=== PATIENT | male | born 1975 | race Two or more races ===

== ENCOUNTER 2022-05-05 14:21 | Emergency (ER) | payer MEDICAID ==
[~2022-05-05] VITALS: Ht 170.2 cm; Wt 79.8 kg
[2022-05-05] MEDS: IV NS 0.9% 1,000 ML BAG IV ONE (14:51)
--- NOTE | 2022-05-05 15:10 | NUR ---
RECEIVED PT 46 YRS MALE CAME FROM HOME BY JAME C/O Elevated bs awake confused respirtion spont and easy
[2022-05-05 15:23] LABS: BASOPHILS # (AUTO) 0.1 K/uL (0.0-0.2); BASOPHILS % (AUTO) 1.2 % (0.0-2.0); EOSINOPHILS % (AUTO) 0.5 % (0.0-6.0); HEMATOCRIT 48 % (39-51); HEMOGLOBIN 16.8 g/dL (13.5-17.5); LYMPHOCYTES # (AUTO) 0.9 K/uL (0.8-4.8); LYMPHOCYTES % (AUTO) 17.9 % (20.0-44.0); MEAN CORPUSCULAR HGB CONC 35 g/dl (31.0-36.0); MEAN CORPUSCULAR VOLUME 85 fL (80-96); MONOCYTES # (AUTO) 0.7 K/uL (0.1-1.30); MONOCYTES % (AUTO) 14.2 % (2.0-12.0); NEUTROPHILS # (AUTO) 3.2 K/uL (1.8-8.9); NEUTROPHILS % (AUTO) 66.2 % (43.0-81.0); PLATELET COUNT (AUTO) 187 K/uL (150-450); RED BLOOD CELL COUNT(AUTO) 5.71 MIL/uL (4.5-6.0); WHITE BLOOD COUNT (AUTO) 4.8 K/uL (4.3-11.0)
[2022-05-05 15:45] LABS: ALBUMIN 4.5 g/dL (3.4-5.0); BILIRUBIN,DIRECT 0.5 mg/dL (0.0-0.2); BILIRUBIN,TOTAL 0.9 mg/dL (0.2-1.0); CALCIUM, SERUM 8.7 mg/dL (8.5-10.1); CREATININE 1.6 mg/dL (0.6-1.3); TOTAL PROTEIN, SERUM 8.3 g/dL (6.4-8.2)
[2022-05-05 15:47] LABS: POTASSIUM 2.7 mmol/L (3.5-5.1)
--- NOTE | 2022-05-05 16:20 | NUR ---
URINE COLLECTED AND SENT TO LAB.
[2022-05-05 17:12] LABS: BILIRUBIN,URINE NEGATIVE (NEGATIVE); COLOR,URINE YELLOW (YELLOW); LEUKOCYTE ESTERASE ,URINE NEGATIVE (NEGATIVE); NITRITE, URINE NEGATIVE (NEGATIVE); PROTEIN,URINE TRACE mg/dl (NEGATIVE); UGLUCOSE 3+ mg/dL (NEGATIVE)
[2022-05-05] MEDS ORDERED: POTASSIUM CHLORIDE 20 MEQ TAB.PRT.SR PO ONE (17:12)
[2022-05-05] MEDS: POTASSIUM CHLORIDE 20 MEQ TAB.PRT.SR PO ONE (17:21)
[2022-05-05 17:38] LABS: WBC,URINE 0-2 /HPF (0-3)
[2022-05-05 17:39] LABS: BACTERIA,URINE None seen /HPF (None Seen); SQUAMOUS EPITHELIAL CELL,UR 0-2 /HPF (None Seen)
[2022-05-05] MEDS ORDERED: POTA20TA83 PO (17:56)
[2022-05-05 18:01] VITALS: BP 132/82
--- NOTE | 2022-05-05 18:05 | NUR ---
IV removed. Catheter intact and site benign. Pressure and 4x4 applied to site. No bleeding noted.Patient discharged to home in stable condition. Written and verbal after care instructions given. Patient verbalizes understanding of instruction.
== END 2022-05-05 18:06 | disposition home or self-care (01) ==
LOC: EDBD 14:44 → ER 14:44
DX: F10.129 Alcohol abuse with intoxication, unspecified (principal); E87.6 Hypokalemia; E11.65 Type 2 diabetes mellitus with hyperglycemia; I10 Essential (primary) hypertension; Y90.9 Presence of alcohol in blood, level not specified
CPT/HCPCS: 99285; 96360; 85025; 80048; 80076; 81001; 36415; 82962; J7030

== ENCOUNTER 2022-07-05 08:37 | Inpatient (IN) | payer MEDICAID ==
[~2022-07-05] VITALS: Ht 170.2 cm; Wt 83.5 kg
[~2022-07-05 08:37] MED LIST: POTA20TA83 PO
--- NOTE | 2022-07-05 08:45 | NUR ---
BIBA FOR NAUSEA/VOMITING. PATIENT HAS BEEN DRINKING ALCOHOL FREQUENTLY AT HOME PER REPORT AND NOT EATING. A/O X 3, ABLE TO MAKE NEEDS KNOWN, TOLERATING WELL ON ROOM AIR.
[2022-07-05] MEDS ORDERED: IV NS 0.9% 1,000 ML BAG IV ONE (09:00)
--- NOTE | 2022-07-05 09:00 | NUR ---
ACCUCHECK 369
--- NOTE | 2022-07-05 09:09 | NUR ---
BLOOD SAMPLES OBTAINED
[2022-07-05 09:20] LABS: BASOPHILS % (AUTO) 0.3 % (0.0-2.0); HEMATOCRIT 49 % (39-51); HEMOGLOBIN 16.4 g/dL (13.5-17.5); LYMPHOCYTES # (AUTO) 0.5 K/uL (0.8-4.8); LYMPHOCYTES % (AUTO) 3.5 % (20.0-44.0); MEAN CORPUSCULAR HGB CONC 33 g/dl (31.0-36.0); MEAN CORPUSCULAR VOLUME 90 fL (80-96); MONOCYTES # (AUTO) 0.5 K/uL (0.1-1.30); MONOCYTES % (AUTO) 3.1 % (2.0-12.0); NEUTROPHILS # (AUTO) 14.1 K/uL (1.8-8.9); NEUTROPHILS % (AUTO) 93.1 % (43.0-81.0); PLATELET COUNT (AUTO) 258 K/uL (150-450); WHITE BLOOD COUNT (AUTO) 15.2 K/uL (4.3-11.0)
[2022-07-05 09:36] LABS: ALANINE AMINOTRANSFERASE 31 U/L (12-78); ALBUMIN 4.4 g/dL (3.4-5.0); ALKALINE PHOSPHATASE 113 U/L (46-116); ASPARTATE AMINOTRANSFERASE 28 U/L (15-37); BILIRUBIN,DIRECT 0.4 mg/dL (0.0-0.2); CALCIUM, SERUM 9.3 mg/dL (8.5-10.1); CARBON DIOXIDE 22 mmol/L (21-32); CHLORIDE 94 mmol/L (98-107); CREATININE 2.1 mg/dL (0.6-1.3); LIPASE 12 U/L (73-393); POTASSIUM 4.1 mmol/L (3.5-5.1); SODIUM SERUM 135 mmol/L (136-145); TOTAL PROTEIN, SERUM 8.2 g/dL (6.4-8.2); UREA NITROGEN, BLOOD 12 mg/dL (7-18)
[2022-07-05 09:45] LABS: GLUCOSE 380 mg/dL (74-106)
--- NOTE | 2022-07-05 09:46 | NUR ---
ACCUCHECK 380
--- NOTE | 2022-07-05 10:29 | NUR ---
COVID SWAB OBTAINED
--- NOTE | 2022-07-05 10:33 | NUR ---
MOVE SHEET SUBMITTED.
--- NOTE | 2022-07-05 11:17 | NUR ---
URINE SAMPLE OBTAINED
[2022-07-05] MEDS ORDERED: METF-440 PO (11:21)
[2022-07-05] MEDS ORDERED: GLIP5TAB13 PO (11:21)
[2022-07-05] MEDS ORDERED: Z GUARD REMEDY 4 OZ OINT TP PRN (11:30)
[2022-07-05] MEDS ORDERED: ONDANSETRON HCL/PF 4 MG/2 ML VIAL IVP PRN (11:30)
[2022-07-05] MEDS ORDERED: MAGNESIUM HYDROXIDE 30 ML UDC PO PRN (11:30)
[2022-07-05] MEDS ORDERED: MAG HYDROX/AL HYDROX/SIMETH 30 ML UDC PO PRN (11:30)
[2022-07-05] MEDS ORDERED: ACETAMINOPHEN 325 MG TABLET PO PRN (11:30)
[2022-07-05] MEDS ORDERED: DEXTROSE 50%-WATER 50 ML DISP.SYRIN IV PRN (11:30)
[2022-07-05] MEDS: BLOOD SUGAR DIAGNOSTIC 1 EACH STRIP VI SCH ×3 (12:00→22:07)
[2022-07-05 12:07] LABS: BILIRUBIN,URINE NEGATIVE (NEGATIVE); COLOR,URINE YELLOW (YELLOW); LEUKOCYTE ESTERASE ,URINE NEGATIVE (NEGATIVE); NITRITE, URINE NEGATIVE (NEGATIVE); PH,URINE 5.5 (5.0-8.0); PROTEIN,URINE NEGATIVE (NEGATIVE); UGLUCOSE 3+ mg/dL (NEGATIVE); UROBILINOGEN,URINE 0.2 EU/dL (0.2)
[2022-07-05 12:13] LABS: BACTERIA,URINE Rare /HPF (None Seen); RBC,URINE 0-2 /HPF (0-2); SQUAMOUS EPITHELIAL CELL,UR Moderate /HPF (None Seen); WBC,URINE 0-2 /HPF (0-3)
--- NOTE | 2022-07-05 14:09 | NUR ---
GOT BED 304-1 ADMITTING INFORMED.
--- NOTE | 2022-07-05 14:33 | NUR ---
REPORT GIVEN TO ROSA CALLAWAY
--- NOTE | 2022-07-05 15:20 | NUR ---
PATIENT TRANSFERED TO 304-1, ALL CARE ENDORSED TO ROSA CALLAWAY
[2022-07-05] MEDS: IV NS 0.9% 1,000 ML IV SCH ×2 (15:42→20:28)
--- NOTE | 2022-07-05 16:14 | NUR ---
ADMISSION NOTES ADMITTED PATIENT FROM ED, A/O X-3 KHMER SPEAKING ONLY C/O ABDOMINAL PAIN/NAUSEA . ON ROOM AIR, TOLERATING WELL, BREATHING EVENLY AND UNLABORED. IV ACCESS ON LAC G. 20 G#20 WITH NS RUNNING AT 120 ML/HR PATENT, INTACT, AND FLUSHES WELL. PRN ZOFRAN ADMINISTERED C/O VOMITING. INITIAL ASSESSMENT DONE, DENIES SKIN ISSUES. REFUSED SKIN ASSESSMENT. ORIENTED TO ROOM AND STAFF. SAFETY MEASURES MAINTAINED. BED IN LOWEST POSITION, BRAKES LOCKED. SIDE RAILS UP X2. CALL LIGHT WITHIN REACH. WILL CONTINUE TO MONITOR.
[2022-07-05] MEDS: INSULIN REGULAR, HUMAN 100 UNIT/ML 3 ML VIAL SQ PRN (17:22)
--- NOTE | 2022-07-05 18:20 | NUR ---
MANAGER QUALITY CLOSING NOTE PATIENT AWAKE IN BED, A/O X-3 LAO SPEAKING ONLY. ON ROOM AIR, TOLERATING WELL, BREATHING EVENLY AND UNLABORED. IV ACCESS ON LAC G. 20 G#20 NS RUNNING AT 120 ML/HR PATENT, INTACT, AND FLUSHES WELL.SAFETY MEASURES MAINTAINED. BED IN LOWEST POSITION, BRAKES LOCKED. SIDE RAILS UP X2. CALL LIGHT WITHIN REACH. WILL ENDORSE TO THE REAMING PRESS OPERATOR NURSE FOR MICHAEL.
--- NOTE | 2022-07-05 19:30 | NUR ---
MS RN NOTES RECEIVED SITTING ON BED,A/O X4,SPEAK ERITREAN,BREATHING REGULAR,NOT IN ANY FORM OF DISTRESS.PRESENT IVF NS AT 120ML/HR RATE INFUSING WELL ON LAC SALINE LOCK,SITE PATENT.DENIES DISCOMFORTS AT THE MOMENT,CALL LIGHT IN REACH,NEEDS ANTICIPATED.
[2022-07-05 20:00] VITALS: BP_SYST 142; BP_SYST 147; BP_DIAS 69
--- NOTE | 2022-07-05 22:00 | NUR ---
MS RN NOTES ACCU-CHECK BLOOD SUGAR CHECK 208MG/DL,COVERED WITH HUMULIN R 4 UNITS PER SLIDING SCALE.SNACKS AT BEDSIDE
[2022-07-05] MEDS: *INSULIN REGULAR(HUMULIN R)HUM 100 UNIT/ML VIAL SQ PRN (22:11)
[2022-07-06] MEDS: IV NS 0.9% 1,000 ML IV SCH ×3 (04:10→22:06)
--- NOTE | 2022-07-06 04:10 | NUR ---
OLD COIN DEALER NOTES NOT CHANGED,STILL A LOT IN THE PRESENT BAG.
[2022-07-06] MEDS: BLOOD SUGAR DIAGNOSTIC 1 EACH STRIP VI SCH ×4 (05:36→22:23)
--- NOTE | 2022-07-06 05:38 | NUR ---
MS RN NOTES ACCU-CHECK BLOOD SUGAR CHECK 201MG/DL,WILL COVET WITH HUMULIN R 6U PER SLIDING SCALE.
[2022-07-06 06:04] LABS: BASOPHILS % (AUTO) 0.2 % (0.0-2.0); EOSINOPHILS % (AUTO) 0.4 % (0.0-6.0); HEMATOCRIT 41 % (39-51); HEMOGLOBIN 13.8 g/dL (13.5-17.5); LYMPHOCYTES # (AUTO) 1.1 K/uL (0.8-4.8); MEAN CORPUSCULAR HGB CONC 34 g/dl (31.0-36.0); MEAN CORPUSCULAR VOLUME 89 fL (80-96); MONOCYTES # (AUTO) 0.8 K/uL (0.1-1.30); MONOCYTES % (AUTO) 8.3 % (2.0-12.0); NEUTROPHILS % (AUTO) 80.1 % (43.0-81.0); PLATELET COUNT (AUTO) 162 K/uL (150-450); RED BLOOD CELL COUNT(AUTO) 4.59 MIL/uL (4.5-6.0); WHITE BLOOD COUNT (AUTO) 10.1 K/uL (4.3-11.0)
[2022-07-06] MEDS: INSULIN REGULAR, HUMAN 100 UNIT/ML 3 ML VIAL SQ PRN ×3 (06:06→16:50)
[2022-07-06 06:19] LABS: CALCIUM, SERUM 8.2 mg/dL (8.5-10.1); CREATININE 1.4 mg/dL (0.6-1.3); MAGNESIUM 2.1 mg/dL (1.8-2.4); PHOSPHORUS 3.7 mg/dL (2.5-4.9); POTASSIUM 3.4 mmol/L (3.5-5.1)
--- NOTE | 2022-07-06 06:30 | NUR ---
MS RN NOTES HUMULIN R 6 UNITS GIVEN SQ FOR BLOOD SUGAR 201.
--- NOTE | 2022-07-06 06:56 | NUR ---
MS RN NOTES FAIRLY RESTED AT NIGHT.NO SIGNIFICANT CHANGE IN STATUS.,NO DISTRESS.ENDORSED TO DAY NURSE FOR MICHAEL.
--- NOTE | 2022-07-06 07:41 | NUR ---
MS RN OPENING NOTE Patient in bed, awake. A/O x 4, Japanese speaking. On room air, no SOB or s/s of distress noted. IV access on LAC #20 infusing NS at 120 ml/hr. Patient denies any pain or discomfort at this time. Safety precautions in place: bed in low, locked position; siderails up x 2; call light within reach. Will continue to monitor.
[2022-07-06 08:48] LABS: ALBUMIN 3.5 g/dL (3.4-5.0); BILIRUBIN,DIRECT 0.4 mg/dL (0.0-0.2); BILIRUBIN,TOTAL 2.4 mg/dL (0.2-1.0); TOTAL PROTEIN, SERUM 6.7 g/dL (6.4-8.2)
[2022-07-06] MEDS ORDERED: POTASSIUM CHLORIDE 20 MEQ TAB.PRT.SR PO ONE (10:00)
[2022-07-06] MEDS ORDERED: LEVOFLOXACIN 500 MG /D5W 100ML 500 MG in PREMIX 1 EA IV SCH (10:00)
[2022-07-06] MEDS: PANTOPRAZOLE 40 MG VIAL IV SCH (10:42)
[2022-07-06 10:51] VITALS: BP 126/71
[2022-07-06] MEDS: LEVOFLOXACIN 500 MG /D5W 100ML 500 MG in PREMIX 1 EA IV SCH (12:00)
[2022-07-06 14:41] LABS: CREATININE, URINE 52.5 MG/DL (30.0-125.0)
[2022-07-06 14:43] LABS: BILIRUBIN,URINE NEGATIVE (NEGATIVE); COLOR,URINE YELLOW (YELLOW); LEUKOCYTE ESTERASE ,URINE NEGATIVE (NEGATIVE); NITRITE, URINE NEGATIVE (NEGATIVE); PH,URINE 7.5 (5.0-8.0); PROTEIN,URINE NEGATIVE (NEGATIVE); UGLUCOSE 3+ mg/dL (NEGATIVE)
[2022-07-06 14:56] LABS: BACTERIA,URINE Few /HPF (None Seen); RBC,URINE 0-2 /HPF (0-2); SQUAMOUS EPITHELIAL CELL,UR Few /HPF (None Seen)
[2022-07-06 15:00] LABS: EOSINOPHIL,URINE None Seen
[2022-07-06 16:36] VITALS: BP 140/75
--- NOTE | 2022-07-06 18:52 | NUR ---
MS RN CLOSING NOTE Patient in bed, resting. A/O x 4, Sudanese speaking. Stable on room air, no SOB or s/s of distress noted. IV access on LAC #20 infusing NS at 100 ml/hr. Patient denies any pain or discomfort at this time. All needs attended to. Due meds given. Safety precautions in place: bed in low, locked position; siderails up x 2; call light within reach. Will endorse to c architect nurse for MICHAEL.
--- NOTE | 2022-07-06 19:30 | NUR ---
RN Opening Note Received patient in bed; awake, alert and oriented x 4. Amharic speaker. On room air; tolerating well. Not in any form of respiratory or cardiac distress noted at this time. Denies any pain or discomfort. With IV access on left antecubital 20g; patent and intact infusing with NS 1L running @ 100 ml/hr; flushes well. Able to make needs known. Safety precautions implemented: call light and table within reach, side rails up x 2, bed in lowest locked position. Will continue to monitor throughout shift.
[2022-07-06 20:00] VITALS: BP 137/86
[2022-07-06 20:26] VITALS: BP 137/86
[2022-07-06] MEDS: *INSULIN REGULAR(HUMULIN R)HUM 100 UNIT/ML VIAL SQ PRN (22:50)
--- NOTE | 2022-07-06 22:50 | NUR ---
RN Note Blood sugar checked - 228 mg/dl. 4u of regular insulin given sq as ordered per sliding scale. Will continue to monitor.
[2022-07-07 05:52] LABS: BASOPHILS % (AUTO) 0.9 % (0.0-2.0); EOSINOPHILS % (AUTO) 1.7 % (0.0-6.0); HEMATOCRIT 41 % (39-51); HEMOGLOBIN 13.3 g/dL (13.5-17.5); LYMPHOCYTES # (AUTO) 1.4 K/uL (0.8-4.8); LYMPHOCYTES % (AUTO) 25.3 % (20.0-44.0); MEAN CORPUSCULAR HGB CONC 33 g/dl (31.0-36.0); MEAN CORPUSCULAR VOLUME 92 fL (80-96); MONOCYTES # (AUTO) 0.7 K/uL (0.1-1.30); MONOCYTES % (AUTO) 12.3 % (2.0-12.0); NEUTROPHILS # (AUTO) 3.3 K/uL (1.8-8.9); NEUTROPHILS % (AUTO) 59.8 % (43.0-81.0); PLATELET COUNT (AUTO) 144 K/uL (150-450); RED BLOOD CELL COUNT(AUTO) 4.43 MIL/uL (4.5-6.0); WHITE BLOOD COUNT (AUTO) 5.6 K/uL (4.3-11.0)
[2022-07-07 05:57] LABS: CALCIUM, SERUM 8.2 mg/dL (8.5-10.1); CREATININE 0.9 mg/dL (0.6-1.3); POTASSIUM 3.5 mmol/L (3.5-5.1)
--- NOTE | 2022-07-07 06:45 | NUR ---
RN Closing Note Patient in bed; awake, a/o x 4. Stable on room air. In no acute distress. No c/o any pain or discomfort. With IV access on left antecubital 20g; patent and intact infusing with NS 1L running @ 100 ml/hr; flushes well. All needs attended. Safety precautions maintained: call light and table within reach, side rails up x 2, bed in lowest locked position. Endorsed to morning shift for continuity of care.
[2022-07-07] MEDS: INSULIN REGULAR, HUMAN 100 UNIT/ML 3 ML VIAL SQ PRN (06:46)
--- NOTE | 2022-07-07 06:46 | NUR ---
RN Note Blood sugar checked - 191 mg/dl. 3u of regular insulin given sq as ordered per sliding scale. Will continue to monitor.
--- NOTE | 2022-07-07 07:30 | NUR ---
RN MS NOTES PT IN BED, AWAKE, ALERT AND ORIENTED, NO COMPLAINT OF PAIN, NOT IN DISTRESS, ABLE TO WALK TO THE BATHROOM WITH STEADY GAIT, CALL LIGHT WITHIN REACH.
[2022-07-07] MEDS: BLOOD SUGAR DIAGNOSTIC 1 EACH STRIP VI SCH (07:51)
[2022-07-07 08:23] VITALS: BP 128/79
[2022-07-07] MEDS ORDERED: PANT40TA2 PO (08:52)
[2022-07-07] MEDS ORDERED: LEVO500T90 PO (08:53)
[2022-07-07] MEDS: PANTOPRAZOLE 40 MG VIAL IV SCH (09:30)
[2022-07-07] MEDS: IV NS 0.9% 1,000 ML IV SCH (09:31)
[2022-07-07] MEDS: LEVOFLOXACIN 500 MG /D5W 100ML 500 MG in PREMIX 1 EA IV SCH (10:03)
[2022-07-07 10:06] LABS: *ANA ANTI-CENTROMERE B AB <0.2 AI (0.0-0.9); *ANA ANTI-DNA(DS) AB, QN 2 IU/mL (0-9); *ANA ANTI-JO-1 <0.2 AI (0.0-0.9); *ANA ANTICHROMATIN ANTIBODY <0.2 AI (0.0-0.9); *ANA RNP ANTIBODIES <0.2 AI (0.0-0.9); *ANA SJOGREN'S ANTI-SS-A <0.2 AI (0.0-0.9); *ANA SJOGREN'S ANTI-SS-B <0.2 AI (0.0-0.9); *ANAANTI-SCLERODERMA-70 AB <0.2 AI (0.0-0.9); *ANASMITH AB <0.2 AI (0.0-0.9)
--- NOTE | 2022-07-07 12:33 | NUR ---
RN MS NOTES PT AWAKE, ALERT AND ORIENTED, AMBULATES IN HIS ROOM WITH STEADY GAIT, NO COMPLAINT OF PAIN, NOT IN RESPIRATORY DISTRESS, DISCHARGE ORDER GIVEN BY DR. KAHN, DISCHARGE AND MEDICATION INSTRUCTIONS PROVIDED TO PT, VERBALIZED UNDERSTANDING, NEW PRESCRIPTIONS CALLED IN TO PT'S PREFERRED PHARMACY, DR. KAHN INFORMED, PT ALSO REQUESTED FOR EXCUSE FROM WORK FORM, OK WITH DR. KAHN, BELONGINGS ACCOUNTED FOR, TAP CARD PROVIDED TO PT, LEFT IN STABLE CONDITION.
[2022-07-08] MEDS ORDERED: PANTOPRAZOLE 40 MG TABLET.DR PO SCH (09:00)
== END 2022-07-07 12:15 | disposition home or self-care (01) | DRG 241 ==
LOC: ER 08:55 → MED 14:36
PROVIDERS: ADMIT Internal Medicine; ATTEND Internal Medicine
DX: K29.80 Duodenitis without bleeding (principal); N17.0 Acute kidney failure with tubular necrosis; E11.00 Type 2 diabetes mellitus with hyperosmolarity without nonketotic hyperglycemic-hyperosmolar coma (NKHHC); I10 Essential (primary) hypertension; E11.65 Type 2 diabetes mellitus with hyperglycemia; Z79.84 Long term (current) use of oral hypoglycemic drugs; E80.6 Other disorders of bilirubin metabolism; E87.6 Hypokalemia; R11.2 Nausea with vomiting, unspecified
CPT/HCPCS: 36415; 76700-TC; 76770-TC; 80048-TC; 80076-TC; 81001; 82533; 82570-TC; 82962-TC; 83690-TC; 83735-TC; 84100-TC; 84300-TC; 84443-TC; 84484-TC; 85025-TC; 85730-TC; 86225; 86235; 86706; 86803; 87081-TC; 87086-TC; A4216; A4223; C9113; C9803; G0378; G0480; J1815; J1956; J2405; J7030